=== PATIENT | female | born 1950 | race Caucasian/White ===

== ENCOUNTER → 2017-06-03 | Outpatient (CLI) | payer OTHER ==
[~2017-06-03] MED LIST: CALCTAB5 PO; LEVO50TA6 PO; MULT-506 PO; ROSU20TA PO
[2017-06-03 10:13] LABS: BLOOD UREA NITROGEN 24 mg/dl (7-18); BUN/CREATININE RATIO 35.7 (10-20); CALCIUM 8.9 mg/dl (8.5-10.1); CARBON DIOXIDE 26 mmol/L (21-32); CHLORIDE 107 mmol/L (98-107); CHOLESTEROL 185 mg/dl (0-200); CREATININE 0.66 mg/dl (0.60-1.20); GLUCOSE 97 mg/dl (70-99); SODIUM 141 mmol/L (136-145)
[2017-06-03 10:34] LABS: CHOLESTEROL/HDL RATIO 2.8; HDL CHOLESTEROL 65 mg/dl; LDL CHOLESTEROL CALCULATED 85 mg/dl; TRIGLYCERIDES 176 mg/dl (0-150); VERY LOW DENSITY LIPOPROT CALC 35 mg/dl
== END ==
LOC: C.LABVPSUW 09:33
PROVIDERS: ATTEND Internal Medicine Critical Care Medicine
DX: E03.9 Hypothyroidism, unspecified (principal); E78.5 Hyperlipidemia, unspecified; R73.9 Hyperglycemia, unspecified

== ENCOUNTER → 2017-09-10 | Outpatient (CLI) | payer OTHER ==
--- NOTE | 2017-09-12 07:48 | MAMMOGRAPHY REPORT ---
BILATERAL DIGITAL SCREENING MAMMOGRAM TOMOSYNTHESIS WITH CAD: 09/10/2017 CLINICAL HISTORY: Routine screening. TECHNIQUE: Breast tomosynthesis in addition to standard 2D mammography was performed. Current study was also evaluated with a Computer Aided Detection (CAD) system. COMPARISON: Comparison is made to exams dated: 08/29/2015 mammogram - [facility], mammogram, 07/18/2009 mammogram, and 07/12/2008 mammogram. BREAST COMPOSITION: There are scattered areas of fibroglandular density in both breasts. FINDINGS: There is a stable intramammary lymph node in the right upper outer quadrant. No suspicious mass, architectural distortion or cluster of microcalcifications is seen. IMPRESSION: ACR BI-RADS CATEGORY 1: NEGATIVE There is no mammographic evidence of malignancy. A 1 year screening mammogram is recommended. The pa tient will receive written notification of the results. Approximately 10% of breast cancers are not detected with mammography. A negative mammographic report should not delay biopsy if a clinically suggestive mass is present. Aurea Velez M.D. ay/:09/10/2017 15:53:11 [employer] Machine Operator: Laith MCKOY(R)(M), [facility] letter sent: Normal 1/2 BI-RADS Code: ACR BI-RADS Category 1: Negative
== END | disposition home or self-care (01) ==
LOC: C.MAMM 13:51
PROVIDERS: ATTEND Internal Medicine Critical Care Medicine
DX: Z12.31 Encounter for screening mammogram for malignant neoplasm of breast (principal)

== ENCOUNTER 2021-08-08 13:37 | Inpatient (IN) ==
--- NOTE | 2021-08-08 14:58 | XRay Report ---
XR tibia fibula RT 2V CLINICAL HISTORY: Right lower leg pain after fall. COMPARISON STUDY: None. FINDINGS: There are comminuted nondisplaced spiral fractures involving the distal shafts of the right tibia and right fibula. These fractures demonstrate up to 9 mm of posterior displacement and mild po sterior angulation. There is also a 7 mm of lateral displacement. The fractures do not extend to the articular surface. IMPRESSION: Comminuted and displaced fractures involving the distal shafts of the right tibia and ri ght fibula. ACT 112: Negative or not required by law. Electronically signed by: Naveen Medeiros M.D. 08/08/2021 2:56 PM
[2021-08-08] MEDS ORDERED: HYDROmorphone INJ 0.5 MG/0.5 ML SYR IV PRN ×2 (15:08→20:23)
[2021-08-08] MEDS ORDERED: SODIUM CHLORIDE 0.9% 1000ML 1,000 ML IV SCH (15:15)
--- NOTE | 2021-08-08 15:25 | History & Physical Report ---
Date of Service August 08, 2021 Assessment & Plan (1) Tibia/fibula fracture: Plan: Status post mechanical fall With comminuted and displaced spiral fractures of the tibia and fibula on the right, but no other injuries Admit to medical/surgical floor -Consult orthopedics-Will need repair tomorrow -N.p.o. after midnight -Pain medication with IV Dilaudid, p.o. oxycodone and Tylenol as needed -IV fluids while n.p.o. -Follow CBC, BMP in the morning -Will need PT/OT evaluations after surgery After laboratory values returned and ECG reviewed, if all acceptable, she is at low perioperative cardiovascular risk for this intermediate risk surgery and should proceed with surgery as planned to repair her tibial fracture. This was discussed with the patient at the time of admission. (2) Fall: Plan: Mechanical in nature Sustained right tibia and fibula closed fracture as above (3) Hyperlipidemia: Plan: Continue home rosuvastatin (4) Hypothyroidism: Plan: TSH normal just a few months ago Continue home levothyroxine Plan: DVT prophylaxis-SCD to the left leg only for now, plan for DVT prophylaxis after surgery as per orthopedics Disposition-admit to medical/surgical floor Full code as per discussion with patient She names her stepdaughter as her healthcare power of pillowcase cleaner/decision maker as her has developed dementia. History of Present Illness Chief Complaint: fall , leg pain Primary Care Provider: [facility] This patient is a 70-year-old female with history of hypothyroidism and hyperlipidemia, who was out walking her dog today and suffered a mechanical fall after which she had pain in the right leg. She reports she was going down a hill and it was wet and she slipped and landed with her right leg underneath her. She denies any injuries anywhere else, denies head trauma or loss of consciousness. She denies chest pains or shortness of breath, no lightheadedness or headache. No abdominal pain or nausea. She came to the ER and was found to have comminuted, nondisplaced spiral fractures involving the distal shafts of the right tibia and fibula-closed fractures. She reports she is quite active and has never had any cardiac issues. She never has any chest pain on her walks and can go up and down stairs without difficulty. She has no underlying lung issues or shortness of breath. She has never had to have a stress test or cardiac catheterization. Allergies Allergy/AdvReac Type Severity Reaction Status Date / Time No Known Allergies Allergy Unverified 01/25/16 08:51 Home Medications Medication Instructions Recorded Confirmed Type calcium carbonate 600 mg-vitamin 1 tab PO BID 08/08/21 08/08/21 History D3 5 mcg (200 unit) tablet levothyroxine 75 mcg tablet 75 mcg PO DAILY 08/08/21 08/08/21 History rosuvastatin 20 mg tablet 20 mg PO DAILY 08/08/21 08/08/21 History Past Med/Surg History Medical History History of cervical cancer Hyperlipidemia Hypothyroidism Surgical History History of appendectomy History of hysterectomy Family History Mother No problems noted. 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 Feels Safe at Home: Yes Review of Systems Review of Systems: All systems reviewed & are unremarkable except as noted in HPI & below Physical Exam Constitutional: WD/WN, vitals as above Eyes: PERRL, conjunctivae normal, anicteric sclerae EOM intact bilaterally; no anisocoria and no nystagmus ENMT: external ear and nose normal, oropharynx normal Ears: no hearing impairment, no external ear abnormality, no EAC abnormality and no TM abnormality Nose: no external nose abnormality Neck: trachea midline, no thyromegaly neck nontender Respiratory: normal respiratory effort, lungs clear to auscultation Cardiovascular: RRR, no murmur, no edema Vessels: dorsalis pedis pulses present (On left) Chest (Breasts): Chest: normal inspection of chest Gastrointestinal (Abdomen): normal bowel sounds, soft, nontender, no hepatosplenomegaly Musculoskeletal: Extremities: + extremities abnormal to inspection (Right leg in splint and wrap, distally neurovascularly intact), no cyanosis and no clubbing Skin: no rashes, warm and dry Neurologic: moves all extremities and awake; no focal motor deficits Psychiatric: A+Ox3, euthymic affect Lymphatic: no lymphedema Results & Data Results & Data ([facility]) Vital Signs (Past 12 Hours) Vital Signs Temp Pulse Resp BP Pulse Ox 08/08/21 13:53 37.2 C 63 20 161/97 H 95 Laboratory Results 08/08/21 08/08/21 08/08/21 Range/Units 16:09 16:09 16:09 WBC 11.80 H (4.8-10.8) K/uL RBC 4.31 (4.2-5.4) M/uL Hgb 13.9 (12.0-16.0) g/dL Hct 40.6 (37-47) % MCV 94.2 (80-100) fL MCH 32.3 (25-34) pg MCHC 34.2 (32-36) g/dL RDW Std Deviation 45.4 (36.4-46.3) fL RDW Coeff of [place] 13.1 (11.5-14.5) % Plt Count 249 (130-400) K/uL MPV 10.9 H (7.4-10.4) fL Immature Gran % (Auto) 0.3 % Neut % (Auto) 77.5 % Lymph % (Auto) 15.0 % [place] % (Auto) 6.7 % Eos % (Auto) 0.2 % Baso % (Auto) 0.3 % Neut # (Auto) 9.16 H (1.4-6.5) K/uL Lymph # (Auto) 1.77 (1.2-3.4) K/uL [place] # (Auto) 0.79 H (0.11-0.59) K/uL Eos # (Auto) 0.02 (0-0.5) K/uL Baso # (Auto) 0.03 (0-0.2) K/uL Immature Gran # (Auto) 0.03 H (0.00-0.02) K/uL PT Pending INR Pending APTT Pending PTT Ratio Pending Sodium Pending Potassium Pending Chloride Pending Carbon Dioxide Pending Anion Gap Pending BUN Pending Creatinine Pending Est Cr Clr Drug Dosing Pending Est GFR ( Amer) Pending Est GFR (Non-Af Amer) Pending BUN/Creatinine Ratio Pending Glucose Pending Calcium Pending Total Bilirubin Pending AST Pending ALT Pending Alkaline Phosphatase Pending Total Protein Pending Albumin Pending Globulin Pending Albumin/Globulin Ratio Pending SARS-CoV-2, RNA, NAAT 08/08/21 Range/Units 16:06 WBC (4.8-10.8) K/uL RBC (4.2-5.4) M/uL Hgb (12.0-16.0) g/dL Hct (37-47) % MCV (80-100) fL MCH (25-34) pg MCHC (32-36) g/dL RDW Std Deviation (36.4-46.3) fL RDW Coeff of [place] (11.5-14.5) % Plt Count (130-400) K/uL MPV (7.4-10.4) fL Immature Gran % (Auto) % Neut % (Auto) % Lymph % (Auto) % [place] % (Auto) % Eos % (Auto) % Baso % (Auto) % Neut # (Auto) (1.4-6.5) K/uL Lymph # (Auto) (1.2-3.4) K/uL [place] # (Auto) (0.11-0.59) K/uL Eos # (Auto) (0-0.5) K/uL Baso # (Auto) (0-0.2) K/uL Immature Gran # (Auto) (0.00-0.02) K/uL PT INR APTT PTT Ratio Sodium Potassium Chloride Carbon Dioxide Anion Gap BUN Creatinine Est Cr Clr Drug Dosing Est GFR ( Amer) Est GFR (Non-Af Amer) BUN/Creatinine Ratio Glucose Calcium Total Bilirubin AST ALT Alkaline Phosphatase Total Protein Albumin Globulin Albumin/Globulin Ratio SARS-CoV-2, RNA, NAAT Pending Diagnostic Findings X-rays of the tibia and fibula reviewed by me and agree with the following report: Tibia/Fibula X-Ray 08/08/21 13:52 XR tibia fibula RT 2V CLINICAL HISTORY: Right lower leg pain after fall. COMPARISON STUDY: None. FINDINGS: There are comminuted nondisplaced spiral fractures involving the distal shafts of the right tibia and right fibula. These fractures demonstrate up to 9 mm of posterior displacement and mild posterior angulation. There is also a 7 mm of lateral displacement. The fractures do not extend to the articular surface. IMPRESSION: Comminuted and displaced fractures involving the distal shafts of the right tibia and right fibula. ACT 112: Negative or not required by law. Electronically signed by: Naveen Medeiros M.D. 08/08/2021 2:56 PM ECG Additional Comments: ECG not performed yet at the time of admission Code Status & VTE Plan Code Status Full code VTE Prophylaxis Plan VTE Prophylaxis will be ordered: Yes PG Care Time/CCT Total # of Minutes Spent Total Time Spent with Patient: Total time spent is greater than 50% in coordination of care (as documented) at patient's floor/unit and/or counseling patient: Coding Level of Care Code 86541 Initial Inpt Care Lvl 3 Diagnoses Hyperlipidemia E78.5 Tibia/fibula fracture S82.209A; S82.409A Fall W19.XXXA Hypothyroidism E03.9
--- NOTE | 2021-08-08 15:59 | XRay Report ---
XR chest 1V portable HISTORY: 70 years-old Female preop preoperative exam. No acute chest complaints. Acute fracture the distal right lower leg COMPARISON: None TECHNIQUE: AP view of the chest FINDINGS: Cardiac silhouette is upper limits of normal in size. Mild linear subsegmental bibasilar densities. N o pneumothorax, pleural effusion or overt pulmonary edema. Degenerative changes of the shoulders and spine. IMPRESSION: Mild linear bibasilar atelectasis. ACT 112: Negative or not required by law. The above report was generated using voice recognition software. It may contain grammatical, syntax o r spelling errors. Electronically signed by: Victor Manuel Tobar M.D. 08/08/2021 3:58 PM
[2021-08-08 16:20] LABS: Basophils # (auto) 0.03 K/uL (0-0.2); Basophils % (auto) 0.3 %; Eosinophils # (auto) 0.02 K/uL (0-0.5); Eosinophils % (auto) 0.2 %; Hematocrit (blood only) 40.6 % (37-47); Hemoglobin 13.9 g/dL (12.0-16.0); Immature Granulocytes # (auto) 0.03 K/uL (0.00-0.02); Immature Granulocytes % (auto) 0.3 %; Lymphocytes # (auto) 1.77 K/uL (1.2-3.4); Mean Corpuscular Hemoglobin 32.3 pg (25-34); Mean Corpuscular Hgb Conc 34.2 g/dL (32-36); Mean Corpuscular Volume 94.2 fL (80-100); Mean Platelet Volume 10.9 fL (7.4-10.4); Monocytes # (auto) 0.79 K/uL (0.11-0.59); Monocytes % (auto) 6.7 %; Neutrophils # (auto) 9.16 K/uL (1.4-6.5); Neutrophils % (auto) 77.5 %; Platelet Count 249 K/uL (130-400); RDW Coefficient of Variation 13.1 % (11.5-14.5); RDW Standard Deviation 45.4 fL (36.4-46.3); Red Blood Count 4.31 M/uL (4.2-5.4)
[2021-08-08 16:31] LABS: Partial Thromboplastin Ratio 0.9; Partial Thromboplastin Time 23.1 Seconds (21.0-31.0); Prothrombin Time 10.3 Seconds (9.0-12.0)
[2021-08-08 16:41] LABS: Albumin Globulin Ratio 2.2 (0.9-2); Albumin Level 4.3 gm/dl (3.4-5.0); BUN Creatinine Ratio 27.9 (10-20); Bilirubin,Total 0.5 mg/dl (0.2-1.0); Calcium 8.9 mg/dl (8.5-10.1); Creatinine Clr Calc Pharmacy 69.6 ml/min; Est GFR (African American) 101.3 ml/min; Est GFR (Non-African American) 87.4 ml/min; Potassium 3.7 mmol/L (3.5-5.1); Total Protein 6.3 gm/dl (6.0-8.3)
--- NOTE | 2021-08-08 17:04 | Emergency Department Note ---
Impression & Plan Nondisplaced comminuted fracture of shaft of right tibia, Fall, Displaced comminuted fracture of shaft of right fibula ED Provider Note INFORMANT: Patient ED PROVIDER(S): Juve Watson MD CHIEF COMPLAINT: Fall and right leg pain PLAN: Disposition: Admitted Condition: Good Outpatient prescription management: none Referral: None MEDICAL DECISION MAKING: Patient presented because of an accidental fall. She suffered a comminuted fracture of both the tibia and fibula on the right lower leg. This was a closed fracture. She was treated with IV Dilaudid. She had a long leg posterior with stirrup Ortho-Glass splint applied. Preop blood work and testing ordered. Covid performed. The patient will need further management in the hospital. I discussed the case with Dr. Donaldson of orthopedics. He has for medicine to admit the patient and they would consult for operative management. I did discuss case with Dr. Naranjo. Patient was evaluated for further management. Triage Nursing notes reviewed and agree them. Vital Signs: reviewed and remarkable for no significant abnormalities Differential diagnosis: Fracture, subluxation, dislocation, contusion, ligamentous injury, neurovascular, compartment syndrome, rhabdomyolysis, as well as other pathologies. Diagnostics interpreted by me: EC Lead ECG performed and revealed Normal sinus rhythym at 71 bpm, normal [place], QRS normal. No elevation or depression. No PACs or PVCs Cardiac Monitoring: Cardiac monitoring ordered by me: The patient was placed on continuous cardiac monitoring and observed. It revealed a normal sinus rhythm at 77beats per minute without ectopy or evidence of dysrhythmia. Imaging studies: Chest x-ray. Findings: A chest x-ray was performed and revealed no pneumothorax, effusion, infiltrate, pulmonary edema, free air under the diaphragm, or wide mediastinum. Impression: No acute disease. X-ray imaging of the right tib-fib as above. Comminuted fracture of both tibia and fibula. I refer you to the EMR for further details. HPI: The patient is a 70 year old female who presents to the Emergency Room with complaints of right leg pain. This started just prior to arrival and is from an accidental fall while walking her dog. The patient was walking on an embankment and slipped. The patient also notes the following associated symptoms, swelling in the right leg, inability to ambulate. The patient has been splinted for relieving factors. Current pain is rated as 7 with movement/10. Patient states she is been in good health recently. Pt denies LOC, headache, visual changes, neck pain, chest pain, breathing difficulties, nausea, vomiting, abdominal pain, back pain, other extremity pain, numbness, weakness, open wounds, active bleeding, or other complaints. ROS: See above HPI for pertinent positives & negatives. A total of 10 systems reviewed and were otherwise negative. PAST MEDICAL HISTORY:See Below , high cholesterol PAST SURGICAL HISTORY:See Below, FAMILY HISTORY:See Below SOCIAL HISTORY:See Below, resides at the [facility]. Retired HOME MEDICATIONS:See Below ALLERGIES:See Below VITALS:See Below PHYSICAL EXAMINATION: GENERAL: Awake, alert, uncomfortable-appearing, in no distress HENT: Normocephalic, atraumatic. Oropharynx unremarkable. EYES: Normal conjunctiva. Sclera non-icteric. NECK: Inspection normal. Non-tender. Supple. No nuchal rigidity. FROM. No masses. RESPIRATORY: Clear to auscultation. No wheezes. No rales. Normal respiratory effort. CARDIAC: Normal rate. Normal rhythm. No murmurs. No rubs. Extremities warm and well perfused. Pulses equal. No JVD. GI: Soft, non-distended. No tenderness to palpation. No rebound or guarding. No masses. RECTAL: Deferred. MUSCULOSKELETAL: Both upper and left lower extremities are atraumatic. The proximal right leg, hip, and knee examined normally. There is swelling and tenderness about the distal third of the right lower leg without open wounds. Ankle and foot examined normally. Right lower extremity is neurovascular intact. LOWER EXTREMITIES: Calves are equal size bilaterally and non-tender. No edema. No discoloration. NEURO: Normal sensorium. No sensory or motor deficits noted. SKIN: No rash or jaundice noted. SPLINTING: Indication: Fracture The injured extremity was identified. The patient was prepped and measured for the placement of a long-leg posterior with stirrup orthoglass splint. Splint applied in the standard fashion over a layer of webril and secured using an elastic bandage. Set into a position of function. Normal neurovascular status after placement verified by me. The patient tolerated the procedure well . No complications. Juve Watson MD Past Med/Surg History Medical History History of cervical cancer Hyperlipidemia Hypothyroidism Surgical History History of appendectomy History of hysterectomy Family History Mother No problems noted. 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 Feels Safe at Home: Yes Allergies Allergies Allergy/AdvReac Type Severity Reaction Status Date / Time No Known Allergies Allergy Unverified 01/25/16 08:51 Home Meds Home Medications Medication Instructions Recorded Confirmed calcium carbonate 600 mg-vitamin 1 tab PO BID 08/08/21 08/08/21 D3 5 mcg (200 unit) tablet levothyroxine 75 mcg tablet 75 mcg PO DAILY 08/08/21 08/08/21 rosuvastatin 20 mg tablet 20 mg PO DAILY 08/08/21 08/08/21 Results & Data (ED) Vital Signs Vital Signs - 24 hr 08/08/21 13:53 08/08/21 16:13 08/08/21 16:52 Temperature 37.2 C Temperature Source Oral Pulse Rate 63 Pulse Rate [Apical] 77 Pulse Rhythm Regular Pulse Strength Normal Respiratory Rate 20 18 Respiratory Effort / Characteristics Non-Labored Spontaneous Respiratory Depth Normal Respiratory Pattern Regular Blood Pressure 161/97 H Blood Pressure [Left Arm] 147/93 H Blood Pressure Mean 118 Blood Pressure Mean [Left Arm] 111 Blood Pressure Position Sitting Pulse Oximetry 95 Oxygen Delivery Method Room Air Room Air Room Air Sepsis Recent Fever Within 48 Hours No Sepsis New/Unexplained Change in Mental Status N/A Sepsis Action Taken by Nursing No Action Required Laboratory Data Result diagrams: 08/08/21 16:09 08/08/21 16:09 Lab Results 08/08/21 08/08/21 08/08/21 Range/Units 16:06 16:09 16:09 WBC 11.80 H (4.8-10.8) K/uL RBC 4.31 (4.2-5.4) M/uL Hgb 13.9 (12.0-16.0) g/dL Hct 40.6 (37-47) % MCV 94.2 (80-100) fL MCH 32.3 (25-34) pg MCHC 34.2 (32-36) g/dL RDW Std Deviation 45.4 (36.4-46.3) fL RDW Coeff of [place] 13.1 (11.5-14.5) % Plt Count 249 (130-400) K/uL MPV 10.9 H (7.4-10.4) fL Immature Gran % (Auto) 0.3 % Neut % (Auto) 77.5 % Lymph % (Auto) 15.0 % [place] % (Auto) 6.7 % Eos % (Auto) 0.2 % Baso % (Auto) 0.3 % Neut # (Auto) 9.16 H (1.4-6.5) K/uL Lymph # (Auto) 1.77 (1.2-3.4) K/uL [place] # (Auto) 0.79 H (0.11-0.59) K/uL Eos # (Auto) 0.02 (0-0.5) K/uL Baso # (Auto) 0.03 (0-0.2) K/uL Immature Gran # (Auto) 0.03 H (0.00-0.02) K/uL PT 10.3 (9.0-12.0) Seconds INR 1.0 (0.9-1.1) APTT 23.1 (21.0-31.0) Seconds PTT Ratio 0.9 Sodium (136-145) mmol/L Potassium (3.5-5.1) mmol/L Chloride (98-107) mmol/L Carbon Dioxide (21-32) mmol/L Anion Gap (3-11) BUN (6-23) mg/dl Creatinine (0.6-1.2) mg/dl Est Cr Clr Drug Dosing ml/min Est GFR ( Amer) ml/min Est GFR (Non-Af Amer) ml/min BUN/Creatinine Ratio (10-20) Glucose (70-99(Fasting)) mg/dl Calcium (8.5-10.1) mg/dl Total Bilirubin (0.2-1.0) mg/dl AST (13-39) U/L ALT (7-52) U/L Alkaline Phosphatase (34-104) U/L Total Protein (6.0-8.3) gm/dl Albumin (3.4-5.0) gm/dl Globulin (2.5-4.0) gm/dl Albumin/Globulin Ratio (0.9-2) SARS-CoV-2, RNA, NAAT NEGATIVE (NEGATIVE) 08/08/21 Range/Units 16:09 WBC (4.8-10.8) K/uL RBC (4.2-5.4) M/uL Hgb (12.0-16.0) g/dL Hct (37-47) % MCV (80-100) fL MCH (25-34) pg MCHC (32-36) g/dL RDW Std Deviation (36.4-46.3) fL RDW Coeff of [place] (11.5-14.5) % Plt Count (130-400) K/uL MPV (7.4-10.4) fL Immature Gran % (Auto) % Neut % (Auto) % Lymph % (Auto) % [place] % (Auto) % Eos % (Auto) % Baso % (Auto) % Neut # (Auto) (1.4-6.5) K/uL Lymph # (Auto) (1.2-3.4) K/uL [place] # (Auto) (0.11-0.59) K/uL Eos # (Auto) (0-0.5) K/uL Baso # (Auto) (0-0.2) K/uL Immature Gran # (Auto) (0.00-0.02) K/uL PT (9.0-12.0) Seconds INR (0.9-1.1) APTT (21.0-31.0) Seconds PTT Ratio Sodium 141 (136-145) mmol/L Potassium 3.7 (3.5-5.1) mmol/L Chloride 107 (98-107) mmol/L Carbon Dioxide 26 (21-32) mmol/L Anion Gap 8 (3-11) BUN 19 (6-23) mg/dl Creatinine 0.68 (0.6-1.2) mg/dl Est Cr Clr Drug Dosing 69.6 ml/min Est GFR ( Amer) 101.3 ml/min Est GFR (Non-Af Amer) 87.4 ml/min BUN/Creatinine Ratio 27.9 H (10-20) Glucose 113 H (70-99(Fasting)) mg/dl Calcium 8.9 (8.5-10.1) mg/dl Total Bilirubin 0.5 (0.2-1.0) mg/dl AST 28 (13-39) U/L ALT 26 (7-52) U/L Alkaline Phosphatase 67 (34-104) U/L Total Protein 6.3 (6.0-8.3) gm/dl Albumin 4.3 (3.4-5.0) gm/dl Globulin 2.0 L (2.5-4.0) gm/dl Albumin/Globulin Ratio 2.2 H (0.9-2) SARS-CoV-2, RNA, NAAT (NEGATIVE) Administered Medications Hydromorphone HCl (Hydromorphone Inj 0.5 Mg/0.5 Ml Syr) 0.5 mg IV Q20M PRN PRN Reason: Severe Pain (Rating 7,8,9,10) Stop: 08/22/21 15:07 Last Admin: 08/08/21 15:23 Dose: 0.5 mg Documented by: [id number] Sodium Chloride (Nss 1000ml) 1,000 mls @ 75 mls/hr IV .[id number] FIORELLA Stop: 08/09/21 04:34 Last Admin: 08/08/21 15:23 Dose: 75 mls/hr Documented by: [id number] Imaging Data Radiologist's Impression: Tibia/Fibula X-Ray 08/08/21 13:52 XR tibia fibula RT 2V CLINICAL HISTORY: Right lower leg pain after fall. COMPARISON STUDY: None. FINDINGS: There are comminuted nondisplaced spiral fractures involving the distal shafts of the right tibia and right fibula. These fractures demonstrate up to 9 mm of posterior displacement and mild posterior angulation. There is also a 7 mm of lateral displacement. The fractures do not extend to the articular surface. IMPRESSION: Comminuted and displaced fractures involving the distal shafts of the right tibia and right fibula. ACT 112: Negative or not required by law. Electronically signed by: Naveen Medeiros M.D. 08/08/2021 2:56 PM Chest X-Ray 08/08/21 15:09 XR chest 1V portable HISTORY: 70 years-old Female preop preoperative exam. No acute chest complaints. Acute fracture the distal right lower leg COMPARISON: None TECHNIQUE: AP view of the chest FINDINGS: Cardiac silhouette is upper limits of normal in size. Mild linear subsegmental bibasilar densities. No pneumothorax, pleural effusion or overt pulmonary edema. Degenerative changes of the shoulders and spine. IMPRESSION: Mild linear bibasilar atelectasis. ACT 112: Negative or not required by law. The above report was generated using voice recognition software. It may contain grammatical, syntax or spelling errors. Electronically signed by: Victor Manuel Tobar M.D. 08/08/2021 3:58 PM Discharge Plan Visit Data Chief Complaint: Fall Stated Complaint: FALL, LEG FX ED Provider: Juve Watson Discharge Problem: Nondisplaced comminuted fracture of shaft of right tibia, Fall, Displaced comm inuted fracture of shaft of right fibula Forms Stand Alone Forms: My [facility] Prescriptions Prescriptions: No Action calcium carbonate-vitamin D3 [Calcium + D] 600 mg-5 mcg (200 unit) Tablet 1 tab PO BID RF: 0 levothyroxine 75 mcg tablet 75 mcg PO DAILY RF: 0 rosuvastatin 20 mg tablet 20 mg PO DAILY RF: 0 Referrals Referrals: [facility] [Primary Care Provider] -
--- NOTE | 2021-08-08 18:49 | Orthopedic Consultation ---
Date of Service August 08, 2021 Assessment & Plan (1) Fracture of shaft of right tibia and fibula: Patient was evaluated in the emergency room tonight. I discussed with her that she has a closed distal tibial shaft fracture and a concomitant distal fibular shaft fracture that is above the syndesmosis. I recommended treatment with surgery, which would be right tibia closed or open reduction and intramedullary nail fixation, with possible open reduction and internal fixation of the fibula based on syndesmotic stability after tibial fixation. The only alternative is a closed reduction and cast immobilization, which would have a higher risk profile. We discussed the risks and the benefits of surgical fixation of these fractures. We discussed the risks include but are not limited to infection, neurovascular injury, nonunion, malunion, symptomatic hardware, need for secondary surgeries, blood clots, pain syndromes, and complications related to anesthesia. She asked appropriate questions, demonstrated good understanding, and elects to proceed with surgical treatment on this admission. She should be nonweightbearing. Please have her n.p.o. for surgery tomorrow afternoon. Hospitalist assistance on her admission is much appreciated. Please optimize her for surgery. History of Present Illness Reason for Consultation: Right tibial shaft and distal fibula fracture Requesting Physician: . Attending Physician: Deana Naranjo MD 70-year-old female who was out walking today and unfortunately slipped in the mud resulting in a twisting motion of her lower leg, resulting in immediate pain and deformity and inability to bear weight on her right lower extremity. He was brought to the emergency room, where tibial shaft and distal fibular fracture worse were diagnosed. Orthopedics was consulted for definitive management. Allergies Allergy/AdvReac Type Severity Reaction Status Date / Time No Known Allergies Allergy Unverified 01/25/16 08:51 Home Medications Medication Instructions Recorded Confirmed Type calcium carbonate 600 mg-vitamin 1 tab PO BID 08/08/21 08/08/21 History D3 5 mcg (200 unit) tablet levothyroxine 75 mcg tablet 75 mcg PO DAILY 08/08/21 08/08/21 History rosuvastatin 20 mg tablet 20 mg PO DAILY 08/08/21 08/08/21 History Past Med/Surg History Medical History (Updated 08/08/21 @ 18:46 by Eagle Donaldson MD) Fracture of shaft of right tibia and fibula History of cervical cancer Hyperlipidemia Hypothyroidism Surgical History History of appendectomy History of hysterectomy Family History Mother No problems noted. 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 Physical Exam Right lower extremity: By ED physician report there are no open wounds. The skin was not compromised. She has full active range of motion of all of her toes and intact light touch sensation. She has less than 2-second cap refill in all of her toes. Well fit posterior slab long-leg splint with an ankle stirrup. Secondary survey was unremarkable. Constitutional well developed and well nourished; no acute distress and not intoxicated appearing Respiratory normal respiratory effort; no respiratory distress Cardiovascular Extremities: normal capillary refill; no edema Skin no rashes, warm and dry Psychiatric A+Ox3, euthymic affect Results & Data Results & Data Laboratory Results H & H 08/08/21 Range/Units 16:09 Hgb 13.9 (12.0-16.0) g/dL Hct 40.6 (37-47) % Coagulation 08/08/21 Range/Units 16:09 INR 1.0 (0.9-1.1) Diagnostic Findings Radiographs of the tibia and fibula were performed in AP and lateral views. I agree with the radiologist that there is a distal tibial shaft short oblique comminuted fracture with displacement. There is a concomitant fracture of the suprasyndesmotic distal fibular shaft. It is significantly comminuted and currently displaced along with the tibia. PG Care Time/CCT Total # of Minutes Spent Total Time Spent with Patient: Total time spent is greater than 50% in coordination of care (as documented) at patient's floor/unit and/or counseling patient: Coding Level of Care Code 10697 Inpt Consult Level 4 (57 - DECISION FOR SURGERY) Diagnoses Fracture of shaft of right tibia and fibula S82.201A; S82.401A Additional Codes Fx Knee/Leg - Tibial shaft: Tibial shaft ([id number]) Fx Ankle - Distal fibula/lateral malleolus: Distal fibula/lateral malleolus ([id number])
--- NOTE | 2021-08-08 18:51 | Anesthesiology Consultation ---
Date of Service August 08, 2021 Assessment & Plan (1) Encounter for pre-operative examination: Chart Review Chart Review: Acceptable Risk for Surgery and Patient NOT seen in Pre Admission Testing Covid neg 08/08/21. Hospitalist note 08/08/21: After laboratory values returned and ECG reviewed, if all acceptable, she is at low perioperative cardiovascular risk for this intermediate risk surgery and should proceed with surgery as planned to repair her tibial fracture. This was discussed with the patient at the time of admission. Consults Requested none History Surgery Operation Date: 08/09/21 07:00 Proposed Procedures p Right Tibial Nail Possible Open Reduction Internal Fixation Ankle - Eagle Donaldson MD Height/Weight Height: 5 ft 2 in Weight: 72.3 kg Allergies Allergy/AdvReac Type Severity Reaction Status Date / Time No Known Allergies Allergy Unverified 01/25/16 08:51 Medications Home Medications Medication Instructions Recorded Confirmed Last Taken calcium carbonate 600 mg-vitamin 1 tab PO BID 08/08/21 08/08/21 08/08/21 D3 5 mcg (200 unit) tablet levothyroxine 75 mcg tablet 75 mcg PO DAILY 08/08/21 08/08/21 08/08/21 rosuvastatin 20 mg tablet 20 mg PO DAILY 08/08/21 08/08/21 08/08/21 Active Medications Generic Name Dose Route Start Last Admin Trade Name Freq PRN Reason Stop Dose Admin Hydromorphone HCl 0.5 mg 08/08/21 15:08 08/08/21 15:23 Hydromorphone Inj 0.5 Mg/0.5 Ml Syr IV 08/22/21 15:07 0.5 mg Q20M PRN Administration Severe Pain (Rating 7,8,9,10) Sodium Chloride 1,000 mls @ 75 mls/hr 08/08/21 15:15 08/08/21 15:23 Nss 1000ml IV 08/09/21 04:34 75 mls/hr .[id number] FIORELLA Administration Past Medical History Medical History Fracture of shaft of right tibia and fibula History of cervical cancer Hyperlipidemia Hypothyroidism Past Family History Family History Mother No problems noted. Father Cancer Liver cancer Past Surgical History Surgical History History of appendectomy History of hysterectomy Social History Smoking Status: Never smoker Hx Alcohol Use: Yes Hx Substance Use: No Physical Exam Vital Signs Last Vital Signs Temp 37.2 C 08/08/21 13:53 Pulse 77 08/08/21 16:52 Resp 18 08/08/21 16:52 BP 147/93 H 08/08/21 16:52 Pulse Ox 95 08/08/21 13:53 Testing Laboratory Results 08/08/21 16:09 08/08/21 16:09 PT 10.3 Seconds (9.0-12.0) 08/08/21 16:09 INR 1.0 (0.9-1.1) 08/08/21 16:09 APTT 23.1 Seconds (21.0-31.0) 08/08/21 16:09 Electrocardiogram Date: 08/08/21 Findings: + NSR @ (71) Normal sinus rhythm Normal ECG No previous ECGs available
[2021-08-08] MEDS ORDERED: ACETAMINOPHEN 325 MG TAB PO PRN (20:23)
[2021-08-08] MEDS ORDERED: MAGNESIUM HYDROXIDE SUSP 30 ML UDC PO PRN (20:23)
[2021-08-08] MEDS ORDERED: POLYETHYLENE (MIRALAX) 17 GM PACK PO PRN (20:23)
[2021-08-08] MEDS ORDERED: oxyCODONE HCL IR 5 MG TAB (IMMEDIATE RELEASE) PO PRN (20:23)
[2021-08-08] MEDS ORDERED: ONDANSETRON INJ 2 MG/ML 2 ML VIAL IV PRN (20:23)
[2021-08-08] MEDS ORDERED: ALUMINUM/MAGNESIUM SUSP 30 ML UDC PO PRN (20:23)
[2021-08-08] MEDS: SODIUM CHLORIDE 0.9% 1000ML 1,000 ML IV SCH (21:15)
[2021-08-08 22:00] LABS: Appearance Urine Turbid (Clear); Bacteria Urine Automated Negative (Negative); Bilirubin Urine Negative (Negative); Blood Urine Negative (Negative); Cast Urine Automated 0 /lpf (0-5); Color Urine Yellow; Glucose Urine UA Negative (Negative); Ketones Urine Negative (Negative); Leukocyte Esterase Urine Negative (Negative); Nitrite Urine Negative (Negative); Protein Urine Negative (Negative); RBC Urine Automated 0-4 /hpf (0-4); Specific Gravity Urine 1.011 (1.000-1.030); Urobilinogen Urine Negative (Negative); pH Urine 8.5 (4.5-7.5)
[2021-08-08] MEDS: CALCIUM 600MG + VIT D 400 IU TAB PO SCH (23:03)
[2021-08-09] MEDS: LEVOTHYROXINE SODIUM 75 MCG TABLET PO SCH (05:47)
[2021-08-09 08:14] LABS: Basophils # (auto) 0.01 K/uL (0-0.2); Basophils % (auto) 0.1 %; Eosinophils # (auto) 0.03 K/uL (0-0.5); Eosinophils % (auto) 0.4 %; Hemoglobin 13.4 g/dL (12.0-16.0); Immature Granulocytes # (auto) 0.01 K/uL (0.00-0.02); Immature Granulocytes % (auto) 0.1 %; Lymphocytes # (auto) 1.54 K/uL (1.2-3.4); Lymphocytes % (auto) 21.8 %; Mean Corpuscular Hemoglobin 32.4 pg (25-34); Mean Corpuscular Hgb Conc 34.4 g/dL (32-36); Mean Corpuscular Volume 94.4 fL (80-100); Mean Platelet Volume 10.9 fL (7.4-10.4); Monocytes # (auto) 0.61 K/uL (0.11-0.59); Monocytes % (auto) 8.6 %; Neutrophils # (auto) 4.87 K/uL (1.4-6.5); Platelet Count 220 K/uL (130-400); RDW Coefficient of Variation 13.2 % (11.5-14.5); RDW Standard Deviation 45.9 fL (36.4-46.3); Red Blood Count 4.13 M/uL (4.2-5.4); White Blood Count 7.07 K/uL (4.8-10.8)
[2021-08-09 08:40] LABS: BUN Creatinine Ratio 23.2 (10-20); Calcium 8.4 mg/dl (8.5-10.1); Creatinine Clr Calc Pharmacy 87.1 ml/min; Est GFR (Non-African American) 93.2 ml/min; Potassium 3.6 mmol/L (3.5-5.1)
[2021-08-09] MEDS ORDERED: MIDAZOLAM HCL 1 MG/ML 2ML VIAL ONE (08:41)
[2021-08-09] MEDS ORDERED: ONDANSETRON INJ 2 MG/ML 2 ML VIAL ONE (08:41)
[2021-08-09] MEDS ORDERED: PROPOFOL IV EMULSION 10 MG/ML 20 ML VIAL IV ONE (08:41)
[2021-08-09] MEDS ORDERED: fentaNYL citrate 100 MCG/2 ML VIAL ONE (08:41)
[2021-08-09] MEDS ORDERED: ceFAZolin 2000MG 2,000 MG/15 ML SYR IV ONE (09:16)
[2021-08-09] MEDS ORDERED: ceFAZolin 2,000 MG/15 ML IV PUSH IV ONE (09:18)
--- NOTE | 2021-08-09 09:22 | History & Physical Bridge Note ---
Date of Service August 09, 2021 History & Physical Bridge Note I have examined the patient, reviewed the History & Physical and in the interval since the performance of the History & Physical I have noted the following changes of clinical significance: no changes noted. Patient is aware of COVID-19 risks. Patient is asymptomatic for COVID-19. Patient has been tested for COVID-19 - [NEGATIVE].
[2021-08-09] MEDS ORDERED: EPINEPHrine INJ 1 MG/ML AMP ONE ×2 (09:28→09:31)
[2021-08-09] MEDS ORDERED: BUPIVACAINE 0.25% 30 ML VIAL ONE (09:28)
[2021-08-09] MEDS ORDERED: BUPIVACAINE 0.5 % 5 MG/1 ML MPF 30ML VIAL ONE (09:31)
[2021-08-09] MEDS ORDERED: ATROPINE SULFATE 0.1 MG/ML 10ML SYR IV PRN (09:32)
[2021-08-09] MEDS ORDERED: ePHEDrine sulfate 50 MG/ML AMP IV PRN (09:32)
[2021-08-09] MEDS ORDERED: fentaNYL citrate 100 MCG/2 ML VIAL IV PRN (09:32)
[2021-08-09] MEDS ORDERED: ONDANSETRON INJ 2 MG/ML 2 ML VIAL IV PRN ×2 (09:32→13:41)
[2021-08-09] MEDS ORDERED: HYDROmorphone INJ 2 MG/ML SYR/VIAL IV PRN (09:32)
--- NOTE | 2021-08-09 09:32 | Anesthesiology Consultation ---
Date of Service August 09, 2021 Assessment & Plan ASA ASA3 Proposed Anesthesia Anesthesia Type: General Regional Regional Laterality: Right Site: Popliteal and Adductor Canal Risk / Benefits Reviewed With: PT / POA / Parent / Guardian, Accepts Plan and Informed Consent Obtained History Surgery Operation Date: 08/09/21 07:00 Proposed Procedures p Possible Open Reduction Internal Fixation Ankle - Eagle Donaldson MD s Intramedullary Nail Tibia, - Eagle Donaldson MD Height/Weight Height: 5 ft 2 in Weight: 76.7 kg Allergies Allergy/AdvReac Type Severity Reaction Status Date / Time No Known Allergies Allergy Unverified 01/25/16 08:51 Medications Home Medications Medication Instructions Recorded Confirmed Last Taken calcium carbonate 600 mg-vitamin 1 tab PO BID 08/08/21 08/08/21 08/08/21 D3 5 mcg (200 unit) tablet levothyroxine 75 mcg tablet 75 mcg PO DAILY 08/08/21 08/08/21 08/08/21 rosuvastatin 20 mg tablet 20 mg PO DAILY 08/08/21 08/08/21 08/08/21 Active Medications Generic Name Dose Route Start Last Admin Trade Name Freq PRN Reason Stop Dose Admin Sodium Chloride 1,000 mls @ 80 mls/hr 08/08/21 20:23 08/08/21 22:06 Nss 1000ml IV 08/09/21 21: 80 mls/hr .[id number] FIORELLA Infusion Levothyroxine Sodium 75 mcg 08/09/21 06:30 08/09/21 05:47 Levothyroxine Sodium 75 Mcg Tablet PO 09/08/21 06:29 [facility] Multivitamins/Minerals 1 tab 08/08/21 21:00 08/08/21 23:03 Calcium 600mg + Vit D 400 Iu Tab PO 09/07/21 20:59 1 tab BID FIORELLA Administration Oxycodone HCl 5 mg 08/08/21 20:23 08/08/21 23:05 Oxycodone Hcl Ir 5 Mg Tab (Immediate Release) PO 08/22/21 20:22 5 mg Q4 PRN Administration moderate Pain NPO Date Last Intake of Fluids: 08/08/21 Time Last Intake of Fluids: 23:00 Date Last Intake of Solids: 08/08/21 Time Last Intake of Solids: 23:00 Past Medical History Medical History Fracture of shaft of right tibia and fibula History of cervical cancer Hyperlipidemia Hypothyroidism Exercise / Class Metabolic Activity II 4-5 Yardwork/Stairs/Walk up hill Past Family History Family History Mother No problems noted. Father Cancer Liver cancer Past Surgical History Surgical History History of appendectomy History of hysterectomy Past Anesthesia History No Hx of Anesthesia Complications and No Family Hx of Anesthesia Complications History of PONV No Hx of PONV and No Hx of Motion Sickness Social History Smoking Status: Never smoker Hx Alcohol Use: Yes Hx Substance Use: No Review of Systems denies fever/cough/ colds/ chest pain/ SOB/ LUZ denies LUZ Physical Exam Vital Signs Last Vital Signs Temp 36.8 C 08/09/21 08:54 Pulse 82 08/09/21 08:54 Resp 18 08/09/21 08:54 BP 169/88 H 08/09/21 08:54 Pulse Ox 96 08/09/21 08:54 ENMT Mouth: no TMJ abnormality and no dentition abnormality Thyromental Distance: > or= 3.5 Finger Breadths Mallampati Class: II Neck neck extension not limited Respiratory normal respiratory effort; no respiratory distress Auscultation: lungs clear to auscultation bilaterally Cardiovascular Rate/Rhythm: regular rate and regular rhythm Neurologic moves all extremities Psychiatric Orientation: alert and oriented x 3 Testing Laboratory Results 08/09/21 07:51 08/09/21 07:51 PT 10.3 Seconds (9.0-12.0) 08/08/21 16:09 INR 1.0 (0.9-1.1) 08/08/21 16:09 APTT 23.1 Seconds (21.0-31.0) 08/08/21 16:09 Urine Color Yellow 08/08/21 21:00 Urine Appearance Turbid (Clear) A 08/08/21 21:00 Urine pH 8.5 (4.5-7.5) H 08/08/21 21:00 Ur Specific [place] 1.011 (1.000-1.030) 08/08/21 21:00 Urine Protein Negative (Negative) 08/08/21 21:00 Urine Glucose (UA) Negative (Negative) 08/08/21 21:00 Urine Ketones Negative (Negative) 08/08/21 21:00 Urine Nitrite Negative (Negative) 08/08/21 21:00 Ur Leukocyte Esterase Negative (Negative) 08/08/21 21:00 Urine WBC (Auto) 1-5 /hpf (0-5) 08/08/21 21:00 Urine RBC (Auto) 0-4 /hpf (0-4) 08/08/21 21:00 U Hyaline Cast (Auto) 0 /lpf (0-5) 08/08/21 21:00 U Epithel Cells (Auto) 10-20 /lpf (0-5) H 08/08/21 21:00 Urine Bacteria (Auto) Negative (Negative) 08/08/21 21:00 Electrocardiogram Date: 08/08/21 Findings: + NSR @ (71) Normal sinus rhythm Normal ECG No previous ECGs available
[2021-08-09] MEDS ORDERED: DEXAMETHASONE SOD INJ 4 MG/ML VIAL ONE (10:11)
[2021-08-09] MEDS ORDERED: KETOROLAC 30 MG/ML VIAL ONE (10:33)
--- NOTE | 2021-08-09 11:49 | Electrocardiogram Report ---
Test Reason : Blood Pressure : / mmHG Vent. Rate : 071 BPM Atrial Rate : 071 BPM P-R Int : 174 ms QRS Dur : 066 ms QT Int : 398 ms P-R-T Axes : 056 055 074 degrees QTc Int : 432 ms Normal sinus rhythm Normal ECG No previous ECGs available Confirmed by Eitan Borden ([id number]) on 08/09/2021 11:48:52 AM Referred By: [facility] Confirmed By:Elbert Borden
--- NOTE | 2021-08-09 12:39 | Operative Report ---
PG Post Operative Report Pre & Post Diagnosis Operation Date: 08/09/21 07:00 Pre-Op Diagnosis: RIGHT TIBIAL SHAFT AND DISTAL SUPRASYNDESMOTIC COMMINUTED FIBULA FRACTURE Post-Op Diagnosis: RIGHT TIBIAL SHAFT AND DISTAL SUPRASYNDESMOTIC COMMINUTED FIBULA FRACTURE I identified the patient and participated in the time-out.: Yes Procedure Operation Date: 08/09/21 07:00 Actual Procedures p Right Intramedullary Nail Tibia(Right) - Eagle Donaldson MD Surgeon Eagle Donaldson MD [employer] Employee Antonio Akhtar PA-C Estimated Blood Loss 50 Findings See Below Short oblique comminuted fracture at the distal diaphysis of the tibia and comminuted distal fibular shaft fracture at the supra syndesmotic region. He had acceptable reduction with all [employer] implants which include 10 mm diameter titanium cannulated tibial nail, 5 mm in gap, interlock screws of 5 mm diameter by 38 mm, 32 mm, 34 mm, 34 mm, 38 mm. The ankle syndesmosis was stable under stress fluoroscopic exam. The comminuted fibula was in acceptable alignment without fixation. Specimens None Anesthesia Type General Regional Complications none Indications 70-year-old female who is recently active on for sustained a slip and fall while walking her dog. Her legs gave way. She immediate deformity and pain. She brought to the emergency room. She is referred to orthopedics for a closed tibia and fibular shaft fracture. I evaluated her and suggested that surgery is the best treatment. We reviewed the risks and benefits and alternatives. She demonstrated good understanding, asked appropriate questions, and elected proceed with surgery. Informed consent was obtained in the emergency room. Description of Procedure On the day of surgery, the patient was greeted in the preoperative holding area. The informed consent was reviewed and confirmed by myself and the patient. The patient identified the surgical site and was marked by me. The patient was then turned over to anesthesia. Anesthesia performed a regional anesthetic block with excellent effect. Patient was then taken to the operating place upon the OR table and anesthesia was induced. The airway was secured. She was positioned on a Kj flat top table. Fluoroscopic views were ensured. Nonsterile tourniquet was placed high in the thigh. Pre-prepped the skin by scrubbing with alcohol and 4 x 4's. ChloraPrep was then applied abundantly. Limited prepped and draped in usual sterile fashion. Surgical timeout was, the circulating nurse and verified by all present. Antibiotics infused, and equipment available and functional. Initiated procedure by doing a medial parapatellar approach with a linear incision along the medial side of patella tendon. Her start point was then found using the opening pain and fluoroscopic guidance. It was advanced by hand first and then power. The opening reamer was then run over the wire. We then moved to fluoroscopic imaging. Provisional reduction was achieved with the assistance of an Esmarch bandage for muscle compartment compression reduction. Internal and internal rotation was adjusted to reduce the fracture at the tibia. The guidewire was then placed with a small band down to the central portion of the tibial final. The PA was essential to holding the reduction while I passed the wire and subsequently the reamers. We started with size 8 reamer and worked up by half millimeter increments to a size 11.5 for a 10 diameter nail. The reduction was observed through the reaming process and reduction was held by the PA. We then open the nail considered on the jig. The nail was passed manually with tapping into the distal segment with a mallet. We maintain the reduction it seemed to set and well with the nail. The fibula seems appropriately reduced once the nail was passed. We moved to the distal interlock screws. I opted for 3 interlock screws because the distal nature of the shaft fracture. These were placed using the perfect beaver technique with protection through the percutaneous incision of traversing the neurovascular structures using hemostat to spread. We then evaluate the fracture in AP and lateral views and adjusted rotation. I then back slapped the nail using the jig to reduce the fracture and provide some compression. This further improved the reduction on fluoroscopic imaging. We then moved to the proximal interlock screws and used the jig and cannula guides. We ensured length in position with fluoroscopic views. 2 additional 5 mm diameter interlock screws were placed. I then evaluated the nail length and determined to place a 5 mm and cap, for ease of removal if necessary. Final AP and lateral views with fluoroscopic imaging were obtained in the proximal middle and distal ends of the nail construct. Alignment was acceptable and fixation was adequate. All wounds were thoroughly irrigated. The deep structures were approximated using 0 Vicryl suture. The dermis was approximated in 2-0 Vicryl suture followed by leatha. All wounds are dressed with sterile Xeroform, plain gauze, ABD, and a web roll. A fiberglass splint was applied in the typical LNE fashion. The patient tolerated the procedure well, was extubated in the operating room, and transferred to the recovery area in stable condition. Disposition: She will remain an inpatient for pain control and initial therapy. Disposition destination will be determined with the assistance of PT/OT. She will initially be nonweightbearing until wounds heal and leatha are removed at her 2-week follow-up in our clinic. We will consider advancing to partial weightbearing in a high tide boot at that point. She should have 6 weeks of chemoprophylaxis for VTE. Routine pain management. We will continue to follow. I attest to the content of the Intraoperative Record and any orders documented therein. Any exceptions are noted below.
--- NOTE | 2021-08-09 13:06 | Anesthesiology Progress Note ---
Date of Service August 09, 2021 Anesthesia Post Procedure Vital Signs Vital Signs: Temp Pulse Pulse Pulse Resp BP BP 08/09/21 12:55 87 16 123/69 08/09/21 12:45 91 H 17 120/72 08/09/21 12:37 98.1 F 93 H 14 105/65 08/09/21 08:54 98.2 F 82 18 169/88 H 08/09/21 08:31 97.5 F L 74 17 133/77 08/08/21 22:01 98.6 F 73 16 158/90 H 08/08/21 20:28 78 18 147/80 H 08/08/21 20:23 76 18 153/82 H 08/08/21 19:32 98.2 F 71 18 146/79 H 08/08/21 19:31 71 20 146/76 H 08/08/21 16:52 77 18 147/93 H 08/08/21 13:53 99.0 F 63 20 161/97 H Pulse Ox 08/09/21 12:55 96 08/09/21 12:45 95 08/09/21 12:37 94 08/09/21 08:54 96 08/09/21 08:31 96 08/08/21 22:01 96 08/08/21 20:28 95 08/08/21 20:23 96 08/08/21 19:32 95 08/08/21 19:31 95 08/08/21 16:52 08/08/21 13:53 95 Pain Intensity Right Ankle: Pain Intensity: 3 Transfer of Care Handoff Completed per policy Notes Mental Status: alert / awake / arousable and participated in evaluation Patient Amnestic to Procedure: Yes Nausea / Vomiting: adequately controlled Pain: adequately controlled Airway Patency, RR, SpO2: stable & adequate BP & HR: stable & adequate Hydration State: stable & adequate Anesthetic Complications: no major complications apparent and Pt Satisfied with anesthetic care
[2021-08-09] MEDS: SODIUM CHLORIDE 0.9% 1000ML 1,000 ML IV SCH ×2 (13:40→15:08)
[2021-08-09] MEDS ORDERED: NALOXONE HCL 0.4 MG/1 ML VIAL/CARP IV PRN (13:41)
[2021-08-09] MEDS ORDERED: HYDROmorphone INJ 0.5 MG/0.5 ML SYR IV PRN (13:41)
[2021-08-09] MEDS ORDERED: MAGNESIUM HYDROXIDE SUSP 30 ML UDC PO PRN (13:41)
[2021-08-09] MEDS ORDERED: bisacodyL 10 MG SUPP PR PRN (13:41)
[2021-08-09] MEDS ORDERED: METOCLOPRAMIDE HCL INJ 5 MG/ML 2 ML VIAL IV PRN (13:41)
--- NOTE | 2021-08-09 13:49 | Fluoroscopy Report ---
INTRAOPERATIVE RADIOGRAPHS CLINICAL HISTORY: Open reduction and internal fixation of the right tibia. Fluoroscopy time: 175 seconds. FINDINGS: 11 spot fluoroscopic views of the right tibia and fibula are presented. Comparison is made to radiographs dated 08/08/2021. An intramedullary nail is placed transfixing a comminuted fracture of the mid to distal tibial shaft. Near-anatomic alignment is restored. There are 2 cortical lag screws transfixing the proximal aspect of the nail and 3 cortical lag screws transfixing the distal end of the nail. A distal fibular shaft fracture is also visualized. IMPRESSION: Intraoperative images from open reduction and internal fixation of a right tibial fractur e as above. Electronically signed by: Karthik Mccann M.D. 08/09/2021 1:47 PM
--- NOTE | 2021-08-09 14:51 | XRay Report ---
XR tibia fibula RT 2V CLINICAL HISTORY: Postoperative evaluation. COMPARISON: Right tibia and fibula radiographs August 08, 2021. FINDINGS: Open reduction and internal fixation of the right tibial fracture with intramedullary saul and proximal and distal screws is noted. Fracture alignment has significantly improved. Hardware is i ntact. There are no unexpected radiopaque foreign bodies. Alignment of the distal diaphyseal right fi bular fracture has also improved. IMPRESSION: Expected postoperative findings following internal fixation of the right tibial fracture, as described above. ACT 112: Negative or not required by law. Electronically signed by: Scottie Allen M.D. 08/09/2021 2:49 PM
[2021-08-09] MEDS: CALCIUM 600MG + VIT D 400 IU TAB PO SCH ×2 (14:54→20:13)
[2021-08-09] MEDS: ROSUVASTATIN CALCIUM 20 MG TAB PO SCH (14:54)
[2021-08-09] MEDS: ACETAMINOPHEN 500 MG TAB PO SCH ×2 (14:57→22:25)
[2021-08-09] MEDS: ceFAZolin 2000MG 2,000 MG/15 ML SYR IV SCH (18:38)
--- NOTE | 2021-08-09 19:19 | Hospitalist Progress Note ---
Date of Service August 09, 2021 Assessment & Plan (1) Tibia/fibula fracture: Plan: Status post mechanical fall Now postop and doing well PT/OT eval and treat Notes that she had a DEXA not too long agodescribes what sounds to be osteopenia, we discussed that with the traumatic nature of the fall, its not 100% clear that she would need to be started on something like a bisphosphonate to prevent future fractures, definitely would want her on adequate calcium and v itamin D, but this can all be discussed with her PCP (2) Fall: Plan: Mechanical in nature Sustained right tibia and fibula closed fracture as above, PT/OT eval and treat (3) Hyperlipidemia: Plan: Continue rosuvastatin (4) Hypothyroidism: Plan: TSH normal just a few months ago Continue Synthroid Plan: DVT prophylaxis-Lovenox Disposition-PT/OT eval and treathome versus needing rehab for short time Admission and Anticipated Discharge Date Admission Date: August 08, 2021 Subjective Feeling fairly well postop. Notes that she is overall very active. Notes that at home she does care for her who is a good bit older, and she wonders how this will work in the short-term. No other acute complaints. Review of Systems Review of Systems: All systems reviewed & are unremarkable except as noted in HPI & below Physical Exam Physical Exam: In general she is awake and alert pleasant no distress. HEENT normocephalic atraumatic mucous membranes moist. Breathing unlabored no accessory muscle use good effort. Skin shows no rashes no pallor or icterus. Neuro without focal deficits. Results & Data Results & Data ([facility]) Vital Signs (Past 12 Hours) Vital Signs Temp Pulse Pulse Resp BP Pulse Ox 08/09/21 17:04 97.9 F 80 17 134/77 94 08/09/21 15:11 97.5 F L 84 14 137/81 96 08/09/21 14:38 97.7 F 102 H 17 152/74 H 90 08/09/21 14:10 97.9 F 87 18 109/72 94 08/09/21 13:41 97.9 F 82 14 116/75 93 08/09/21 13:25 78 18 117/71 95 08/09/21 13:15 80 12 103/70 93 08/09/21 13:05 97.7 F 86 15 114/75 94 08/09/21 12:55 87 16 123/69 96 08/09/21 12:45 91 H 17 120/72 95 08/09/21 12:37 98.1 F 93 H 14 105/65 94 08/09/21 08:54 98.2 F 82 18 169/88 H 96 08/09/21 08:31 97.5 F L 74 17 133/77 96 PG Care Time/CCT Total # of Minutes Spent Total Time Spent with Patient: Total time spent is greater than 50% in coordination of care (as documented) at patient's floor/unit and/or counseling patient: Coding Level of Care Code 23711 Subseq Hosp Care Lvl 2 Diagnoses Tibia/fibula fracture S82.209A; S82.409A Fall W19.XXXA Hyperlipidemia E78.5 Hypothyroidism E03.9
[2021-08-09] MEDS: DOCUSATE SODIUM 100 MG CAP PO SCH (20:13)
[2021-08-09] MEDS: SENNA 8.6 MG TAB PO SCH (20:13)
[2021-08-10] MEDS: SODIUM CHLORIDE 0.9% 1000ML 1,000 ML IV SCH (00:37)
[2021-08-10] MEDS: ceFAZolin 2000MG 2,000 MG/15 ML SYR IV SCH (03:13)
[2021-08-10] MEDS: LEVOTHYROXINE SODIUM 75 MCG TABLET PO SCH (05:52)
[2021-08-10] MEDS: ACETAMINOPHEN 500 MG TAB PO SCH ×4 (05:52→21:11)
[2021-08-10] MEDS: MULTIVITAMIN TAB PO SCH (07:38)
[2021-08-10] MEDS: DOCUSATE SODIUM 100 MG CAP PO SCH ×2 (07:38→21:12)
[2021-08-10] MEDS: CALCIUM 600MG + VIT D 400 IU TAB PO SCH ×2 (07:39→21:12)
[2021-08-10] MEDS: ENOXAPARIN INJ 40 MG/0.4 ML SYR SQ SCH (07:39)
[2021-08-10] MEDS: ROSUVASTATIN CALCIUM 20 MG TAB PO SCH (07:39)
--- NOTE | 2021-08-10 15:39 | Orthopedic Progress Note ---
Date of Service August 10, 2021 Assessment & Plan (1) Fracture of shaft of right tibia and fibula: S/p Intramedullary Nail Tibia (DOS 08/09/2021; Dr. Donaldson) -Doing well on POD 1 -Activity: NWB RLE. PT/OT following -DVT ppx: Lovenox -Post op abx ordered -Pain appears controlled w/ current regimen, expect she may require more narcotic pain meds with block wearing off Disposition: She is stable for discharge from Orthopedics perspective. PT/OT recommending inpatient rehab. Care management following for placement; will likely go to the [facility] for rehab as she is a resident of [place]. She will need follow up clinic appt with Dr. Donaldson at 2 weeks post op for wound check and repeat XRs. She will also need DVT ppx for 6 weeks; would prefer Eliquis 2.5 mg BID. Will follow along while she remains inpatient. Call with any questions. Subjective Doing well today, in good spirits. Leg still feels numb from the block. PT recommending inpatient rehab at discharge. Review of Systems All systems reviewed & are unremarkable except as noted in HPI & below. Physical Exam General: Pleasant 70 y/o/f, not acutely ill appearing. Answers questions appropriately in NAD. RLE: Splint left in place. Dressing dry and intact. Mild tenderness over incisions. Wiggles toes, can actively flex/extend knee with limited ROM. Distally NVI. Results & Data Results & Data Laboratory Results None recent . Diagnostic Findings Post op XRs reviewed and stable. These were reviewed w/ pt at bedside. PG Care Time/CCT Total # of Minutes Spent Total Time Spent with Patient: Total time spent is greater than 50% in coordination of care (as documented) at patient's floor/unit and/or counseling patient: Coding Level of Care Code 74901 Post Operative Follow-Up Diagnoses Fracture of shaft of right tibia and fibula S82.201A; S82.401A
[2021-08-10] MEDS: oxyCODONE HCL IR 5 MG TAB (IMMEDIATE RELEASE) PO PRN ×2 (15:43→21:10)
--- NOTE | 2021-08-10 20:17 | Hospitalist Progress Note ---
Date of Service August 10, 2021 Assessment & Plan (1) Tibia/fibula fracture: Plan: Status post mechanical fall Now postop and doing well PT/OT eval and treatappears to need rehab, [place] [facility] St[facility] for [facility] the [facility] once possible. Notes that she had a DEXA not too long agodescribes what sounds to be osteopenia, we discussed that with the traumatic nature of the fall, its not 100% clear that she would need to be started on something like a bisphosphonate to prevent future fractures, definitely would want her on adequate calcium and vitamin D, but this can all be discussed with her PCP (2) Fall: Plan: Mechanical in nature Sustained right tibia and fibula closed fracture as above, PT/OT eval and treat (3) Hyperlipidemia: Plan: Continue rosuvastatin (4) Hypothyroidism: Plan: TSH normal just a few months ago Continue Synthroid Plan: DVT prophylaxis-Lovenox Disposition-PT/OT eval and treatanticipate rehab at the [facility] Admission and Anticipated Discharge Date Admission Date: August 08, 2021 Subjective Feeling good, no significant pain. [facility]waiting [facility]anticipates [facility] tomorrow Review of Systems Review of Systems: All systems reviewed & are unremarkable except as noted in HPI & below Physical Exam Physical Exam: In general she is awake and alert pleasant no distress. HEENT normocephalic atraumatic mucous membranes moist. Breathing unlabored no accessory muscle use good effort. Skin shows no rashes no pallor or icterus. Neuro without focal deficits. Results & Data Results & Data ([facility]) Vital Signs (Past 12 Hours) Vital Signs Temp Pulse Resp BP Pulse Ox 08/10/21 14:40 97.9 F 82 17 146/81 H 98 08/10/21 10:32 98.2 F 81 17 128/75 94 08/10/21 08:33 97.5 F L 72 17 135/77 96 PG Care Time/CCT Total # of Minutes Spent Total Time Spent with Patient: Total time spent is greater than 50% in coordination of care (as documented) at patient's floor/unit and/or counseling patient: Coding Level of Care Code 57357 Subseq Hosp Care Lvl 2 Diagnoses Tibia/fibula fracture S82.209A; S82.409A Fall W19.XXXA Hyperlipidemia E78.5 Hypothyroidism E03.9
[2021-08-10] MEDS: SENNA 8.6 MG TAB PO SCH (21:11)
[2021-08-11] MEDS: oxyCODONE HCL IR 5 MG TAB (IMMEDIATE RELEASE) PO PRN ×2 (03:49→07:28)
[2021-08-11] MEDS: LEVOTHYROXINE SODIUM 75 MCG TABLET PO SCH (05:17)
[2021-08-11] MEDS: ACETAMINOPHEN 500 MG TAB PO SCH ×2 (05:17→13:19)
--- NOTE | 2021-08-11 08:21 | Orthopedic Progress Note ---
Date of Service August 11, 2021 Assessment & Plan (1) Fracture of shaft of right tibia and fibula: S/p Intramedullary Nail Tibia (DOS 08/09/2021; Dr. Donaldson) -Doing well on POD 2. Expected level of pain. -Activity: NWB RLE. PT/OT following -DVT ppx: Lovenox -Pain appears controlled w/ current regimen, not requiring IV dilaudid. Disposition: She is stable for discharge from Orthopedics perspective. PT/OT recommending inpatient rehab. Care management following for placement; will go to the [facility] for rehab as she is a resident of [place]. She will need follow up clinic appt with Dr. Donaldson at 2 weeks post op for wound check and repeat XRs. She will also need DVT ppx for 6 weeks; would prefer Eliquis 2.5 mg BID. Will follow along while she remains inpatient. Call with any questions. Subjective Having more pain today. Otherwise no concerns. VSS . Review of Systems All systems reviewed & are unremarkable except as noted in HPI & below. Physical Exam General: Pleasant 70 y/o/f, not acutely ill appearing. Answers questions appropriately in NAD. RLE: Splint left in place. Dressing dry and intact. Tenderness over incisions. Wiggles toes, can actively flex/extend knee with limited ROM. Distally NVI. Results & Data Results & Data Laboratory Results None recent . Diagnostic Findings None recent . PG Care Time/CCT Total # of Minutes Spent Total Time Spent with Patient: Total time spent is greater than 50% in coordination of care (as documented) at patient's floor/unit and/or counseling patient: Coding Level of Care Code 59186 Post Operative Follow-Up Diagnoses Fracture of shaft of right tibia and fibula S82.201A; S82.401A
[2021-08-11] MEDS: CALCIUM 600MG + VIT D 400 IU TAB PO SCH (08:35)
[2021-08-11] MEDS: MULTIVITAMIN TAB PO SCH (08:35)
[2021-08-11] MEDS: DOCUSATE SODIUM 100 MG CAP PO SCH (08:35)
[2021-08-11] MEDS: ENOXAPARIN INJ 40 MG/0.4 ML SYR SQ SCH (08:35)
[2021-08-11] MEDS: ROSUVASTATIN CALCIUM 20 MG TAB PO SCH (08:35)
--- NOTE | 2021-08-11 15:58 | Discharge Summary ---
Date of Service August 11, 2021 Admission HPI Per Admitting Provider This patient is a 70-year-old female with history of hypothyroidism and hyperlipidemia, who was out walking her dog today and suffered a mechanical fall after which she had pain in the right leg. She reports she was going down a hill and it was wet and she slipped and landed with her right leg underneath her. She denies any injuries anywhere else, denies head trauma or loss of consciousness. She denies chest pains or shortness of breath, no lightheadedness or headache. No abdominal pain or nausea. She came to the ER and was found to have comminuted, nondisplaced spiral fractures involving the distal shafts of the right tibia and fibula-closed fractures. She reports she is quite active and has never had any cardiac issues. She never has any chest pain on her walks and can go up and down stairs without difficulty. She has no underlying lung issues or shortness of breath. She has never had to have a stress test or cardiac catheterization. Principal Diagnosis Tibia fracture s/p intramedular nailing 08/09/21 Dr Donaldson Discharge Exam The patient appeared well Vital signs as documented. Lungs are clear to auscultation and appear unlabored Extremities resting on her right leg she has good distal sensation and capillary refill Neurologic exam is alert and oriented, no focal loss of strength or sensation Skin is without bruises or rashes Psychologically is without concerns for anxiety or depression. Discharge Data Allergies Allergy/AdvReac Type Severity Reaction Status Date / Time No Known Allergies Allergy Unverified 01/25/16 08:51 Consultations 08/08/21 15:59 ED Decision to Admit Stat 08/08/21 20:23 Consult Orthopedic Surgery Routine Procedures Performed Operation Date: 08/09/21 07:00 Actual Procedures p Intramedullary Nail Tibia(Right) - Eagle Donaldson MD Ordered Studies 08/09/21 [place] tibia/fibula RT 2V Routine 08/09/21 09:32 US - OR guided needle placemen Routine Hospital Course (1) Tibia/fibula fracture: Status post mechanical fall Now postop and doing well PT/OT eval and treatappears to need rehab, [place] [facility]. St[facility] for [facility] the [facility] Notes that she had a DEXA not too long agodescribes what sounds to be osteopenia, we discussed that with the traumatic nature of the fall, its not 100% clear that she would need to be started on something like a bisphosphonate to prevent future fractures, definitely would want her on adequate calcium and vitamin D, but this can all be discussed with her PCP (2) Fall: Mechanical in nature Sustained right tibia and fibula closed fracture as above, PT/OT eval and treat (3) Hyperlipidemia: Continue rosuvastatin (4) Hypothyroidism: TSH normal just a few months ago Continue Synthroid Total Time Total Time Spent Total Time Spent (In Minutes): It required greater than 30 minutes to prepare this patient for discharge Discharge Plan Discharge Items Patient Disposition: Transfer [facility] Reason For Visit: TIBIA/FIBULA FRACTURE Discharge Diagnosis: Tib Fib fracture with repair 08/09 with intramedullary nail to tibia Activity: Per Instructions section Non-emergency contact: Surgeon Call non-emergency contact if: you have any medication questions, your pain is not controlled and your temperature is above 101 Follow-up/Referrals: Eagle Donaldson MD [Surgeon] - [facility] [Primary Care Provider] - Diet: Regular Addtl Attending Provider Instructions: Eagle Donaldson M.D. [facility] [address], [place] [address] POSTOPERATIVE INSTRUCTIONS TIBIA/FIBULA FRACTURES SPLINT/WOUND CARE: Leave your splint in place and keep the area clean and dry. Your splint will be taken down at your postop clinic visit. Do not remove it yourself. Do not walk on your splint. You should be completely non-weightbearing. Use your crutches as instructed. If the splint becomes wet, dirty, uncomfortable, or loose, please call the [facility] ([phone]) to arrange to be evaluated in the [facility]. Please call the Ortho Clinic if you have any questions or concerns PAIN CONTROL: Elevation is your best friend. Elevate the affected extremity above the level of your heart. Swelling is simply fluid. Elevation will allow the fluid to run down hill, reduce swelling, and decrease pain. The affected extremity should be continuously elevated for the first 2-3 days, with the exception of bathroom, hygiene, etc. You may be prone to swelling for several weeks, or until you return to normal function with your foot/ankle. Ice will help with pain and swelling. Place ice over the front of your ankle. There is abundant padding so it may take a while to feel like its working. Be sure to not let the ice leak into your splint. Medications: 1. Oxycodone (OxyIR) 1-2 tablet(s) orally every 4 hours for pain as needed. Use with Tylenol. Begin tapering OxyIR as soon as possible: reduce from 2 to 1 pills per dose, then spread out the doses over greater time intervals, then try to use only for therapy or for comfort while sleeping. Continue to use regular Tylenol until pain subsides. 2. Tylenol (325mg): 3 tablets every 8 hours orally. Regular dosing of Tylenol is an important part of your baseline pain control. Do not taper Tylenol until you have successfully tapered off of regular OxyIR. Do not take more than 3000mg of Tylenol per day. 3. Zofran: 1 tablet orally every 6 hours as needed for nausea related to anesthesia, pain, and narcotic medications. 4. Colace (100mg): take 1-2 tabs twice daily to avoid constipation from OxyIR or other narcotics. OVER THE COUNTER 5. Eliquis (2.5 mg) Blood clots can be caused by fracture and immobility. One tablet twice per day starting the day after surgery may reduce the risk. The risk of clots goes down significantly after 30 days or as you return to normal mobility. WHEN TO CALL. If you develop any of the following symptoms, please contact the [facility] at [phone] or the Emergency room (after hours): Temperature greater than 101 taken twice, difficulty breathing, bleeding, fever and chills, increased pain unrelieved by pain meds, uncomfortable cast or splint, or any other concerns. Pending Studies at Discharge: No Stand-Alone Forms: My [employer], Smoking Cessation Skilled Items Patient informed of condition?: Yes DNR: No Discharge Level of Care: Skilled Communicable Disease: No Discharge Prognosis: Stable Lines: None Urinary Catheter: No Medications and DC Order Prescriptions: New acetaminophen [Tylenol Extra Strength] 500 mg Tablet 1,000 mg PO Q8 Qty: 90 RF: 0 oxycodone 5 mg Tablet 5 - 10 mg PO Q4H PRN (Reason: pain) Qty: 20 RF: 0 Eliquis 2.5 mg tablet 2.5 mg PO BID Qty: 60 RF: 0 docusate sodium [Colace] 100 mg capsule 100 mg PO BID Qty: 60 RF: 0 Continued calcium carbonate-vitamin D3 600 mg-5 mcg (200 unit) Tablet 1 tab PO BID RF: 0 levothyroxine 75 mcg tablet 75 mcg PO DAILY RF: 0 rosuvastatin 20 mg tablet 20 mg PO DAILY RF: 0 Discharge Orders: Discharge Order (Routine); Ordered 08/11/21 Ordered By: Steven Ulloa/Other Patient Handouts: How [facility] Admission Data Admit Date/Time: 08/08/21 15:55 Attending Provider: Steven Kunz Admit Provider: Deana Naranjo Primary Care Provider: [facility] Other Providers: Deana Naranjo ; Eagle Donaldson Other Interventions: Discharge Summary Assessment (RN) Last Done: 08/11/21 10:55 Coding Level of Care Code D/C DAY MANAGEMENT >30 MINS Diagnoses Tibia/fibula fracture S82.209A; S82.409A Fall W19.XXXA Hyperlipidemia E78.5 Hypothyroidism E03.9
== END 2021-08-11 13:54 | DRG 494 ==
LOC: ED 13:37 → SUATTDRO 15:55 → EDINP 15:55 → 3E 20:28